=== PATIENT | female | born 1985 | race Caucasian/White ===

== ENCOUNTER 2016-12-04 16:52 | Emergency (ER) | payer SELFPAY ==
[~2016-12-04] VITALS: Ht 162.6 cm; Wt 99.3 kg
[2016-12-04 16:56] VITALS: BP 142/90
[2016-12-04] MEDS ORDERED: HYDROmorphone HCL 2 MG/ML VL IM ONE (18:00)
[2016-12-04] MEDS ORDERED: ONDANSETRON HCL 4 MG/2 ML VIAL IM ONE (18:00)
== END 2016-12-04 18:05 | disposition home or self-care (01) ==
LOC: ER 16:58
DX: G89.4 Chronic pain syndrome (principal); N80.9 Endometriosis, unspecified; Z90.89 Acquired absence of other organs
CPT/HCPCS: 96372; 99284; J1170

== ENCOUNTER 2017-12-21 01:05 | Emergency (ER) | payer SELFPAY ==
[~2017-12-21] VITALS: Ht 162.6 cm; Wt 90.7 kg
[2017-12-21 01:26] VITALS: BP 164/99
== END 2017-12-21 02:09 | disposition left against medical advice (07) ==
LOC: ER 01:05
DX: N80.9 Endometriosis, unspecified (principal); Z53.21 Procedure and treatment not carried out due to patient leaving prior to being seen by health care provider